=== PATIENT | male | born 2000 | race Caucasian/White ===

== ENCOUNTER 2020-01-20 20:08 | Emergency (ER) | payer BC ==
[~2020-01-20] VITALS: Ht 172.7 cm; Wt 65.9 kg
[2020-01-20 20:24] VITALS: TEMP 98.2
[2020-01-20 21:14] LABS: COLLECTION METHOD CLEAN CATCH
[2020-01-20 21:20] LABS: MUCOUS Present /lpf; PH 6 (5-8); SQUAMOUS EPITHELIAL None Seen /hpf; URINE APPEARANCE Clear; URINE BACTERIA None Seen /hpf; URINE BILIRUBIN Negative (NEGATIVE); URINE BLOOD Negative (NEGATIVE); URINE COLOR Yellow; URINE GLUCOSE 1+ (NEGATIVE); URINE KETONE Negative (NEGATIVE); URINE LEUKOCYTE ESTERASE Negative (NEGATIVE); URINE NITRATE Negative (NEGATIVE); URINE PROTEIN(semi-quant) Negative (NEGATIVE); URINE RBC 0-2 /hpf; URINE UROBILINOGEN Negative (NEGATIVE)
[2020-01-20 22:05] VITALS: BP 125/76; PULSE 72
[2020-01-20] MEDS ORDERED: NORCO 325 MG-51 TAB PO (22:06)
== END 2020-01-20 22:16 | disposition home or self-care (01) ==
LOC: COL.ER 20:08
PROVIDERS: Nurse Practitioner
DX: S42.001A Fracture of unspecified part of right clavicle, initial encounter for closed fracture (principal); S60.811A Abrasion of right wrist, initial encounter; S80.211A Abrasion, right knee, initial encounter; S70.211A Abrasion, right hip, initial encounter; R40.2410 Glasgow coma scale score 13-15, unspecified time; W01.0XXA Fall on same level from slipping, tripping and stumbling without subsequent striking against object, initial encounter; Y92.488 Other paved roadways as the place of occurrence of the external cause
CPT/HCPCS: J3010; J7030